=== PATIENT | female | born 1980 | race Caucasian/White ===

== ENCOUNTER 2017-01-26 16:35 | Emergency (ER) | payer BC ==
[~2017-01-26] VITALS: Ht 162.6 cm; Wt 46.7 kg
--- NOTE | 2017-01-26 16:55 | NUR ---
MD MARTINEZ AT BEDSIDE PERFORMING MSE
--- NOTE | 2017-01-26 16:56 | NUR ---
PT VERBALIZED IF SHE CAN GO TO HER CAR TO GET HER [employer]. MD MARTINEZ IS AWARE. PT IS AMBULATORY WITH STEADY GAIT. NAD NOTED. VSS. DENIES SI/HI AT THIS TIME. +AH. WITH NO PLAN TO HARM SELF OR OTHERS.
--- NOTE | 2017-01-26 17:23 | NUR ---
PT HAVE NOT RETURNED. MD MARTINEZ IS AWARE
--- NOTE | 2017-01-26 17:27 | NUR ---
Patient eloped from facility. ER physician notified.
== END 2017-01-26 17:50 | disposition left against medical advice (07) ==
LOC: ER 16:35
DX: F31.9 Bipolar disorder, unspecified (principal); F41.9 Anxiety disorder, unspecified; K21.9 Gastro-esophageal reflux disease without esophagitis; K58.9 Irritable bowel syndrome, unspecified; Z88.1 Allergy status to other antibiotic agents; Z88.8 Allergy status to other drugs, medicaments and biological substances
CPT/HCPCS: 99284; A4663